=== PATIENT | female | born 1995 | race African-American/Black ===

== ENCOUNTER 2018-01-05 23:07 | Emergency (ER) | payer SELFPAY ==
[~2018-01-05] VITALS: Ht 172.7 cm; Wt 108.9 kg
[2018-01-05] MEDS ORDERED: NKM (23:40)
[2018-01-06 00:57] LABS: APPEARANCE,URINE CLEAR; BILIRUBIN, URINE NEGATIVE (NEGATIVE); GLUCOSE, URINE (UA) NEGATIVE (NEGATIVE); KETONES,URINE 2+ (NEGATIVE); LEUKOCYTE ESTERASE ,URINE 1+ (NEGATIVE); NITRITE,URINE NEGATIVE (NEGATIVE); PH,URINE 6 (4.5-8.0); PROTEIN,URINE NEGATIVE (NEGATIVE); UROBILINOGEN,URINE 12 MG/DL (0.0-1.0)
[2018-01-06 01:07] LABS: COLOR,URINE YELLOW
[2018-01-06 01:48] VITALS: BP 105/72
--- NOTE | 2018-01-06 01:48 | Emergency Room Report ---
History of Present Illness General Chief Complaint: Skin Rash/Abscess Source: Patient Present Illness HPI Patient with itchy rash which has worsened over the last 3 days. Never with allergies before. No new soaps, clothes, foods etc. No fevers. Rash more central and on thighs and chest. Was in heat last few days when started. No meds. Not believe she is , but periods are irregular and she wants to have a test. No pain, but itching. She has taken Benadryl with some help, but itching is still significant. No fevers, URI, CP, NVD, dyspena, throat swelling. Tetanus UTD. Allergies: Coded Allergies: No Known Allergies (Unverified , 01/05/18) Patient History Past Medical History: see triage record Social History: Reports: smoking Social History Narrative with sig other, working Last Menstrual Period: November Reviewed Nursing Documentation: PMH: Agreed; PSxH: Agreed Nursing Documentation-PMH Past Medical History: No Stated History Review of Systems All Other Systems: negative except mentioned in HPI Physical Exam Vital Signs Date Time Temp Pulse Resp B/P (MAP) Pulse Ox O2 Delivery O2 Flow Rate FiO2 01/05/18 23:34 98.7 104 16 103/65 98 Room Air 98.8 Sp02 EP Interpretation: reviewed, normal General Appearance: well appearing, no apparent distress Head: normocephalic, atraumatic Eyes: bilateral eye normal inspection, bilateral eye PERRL ENT: hearing grossly normal, normal pharynx, no angioedema, normal voice, moist mucus membranes Neck: full range of motion, supple Respiratory: lungs clear, normal breath sounds, no respiratory distress, speaking full sentences Cardiovascular #1: regular rate, rhythm Gastrointestinal: normal inspection Musculoskeletal: back normal, digits/nails normal, gait/station normal, normal range of motion, no calf tenderness Neurologic: alert, oriented x3, normal gait, grossly normal Psychiatric: mood/affect normal Skin: other - centripital maculopapular rash, inner thighs, arms, chest and back, no weeping, no sig erythema Medical Decision Making Diagnostic Impression: Primary Impression: Allergic reaction Qualified Codes: T78.40XA - Allergy, unspecified, initial encounter Additional Impression: Heat rash ER Course Patient with itchy rash X few days. DDx: allergy, contact dermatitis, heat rash amongst others. Not appear like hives. No contact exposure history or change in diet/exposures. Will check UA. UA clear and neg preg. Treatment with prednisone, benadryl and topical creams. Patient stable for outpatient observation and treatment. Last Vital Signs Date Time Temp Pulse Resp B/P (MAP) Pulse Ox O2 Delivery O2 Flow Rate FiO2 01/06/18 02:00 97.8 62 16 105/72 99 Room Air 97.8 Status: improved Disposition: HOME, SELF-CARE Condition: Improved Scripts Triamcinolone Acetonide (TRIAMCINOLONE ACETONIDE) 15 Gm Cream..g. 15 GM TP BID, #20 GM 1 Refill 0.1% Prov: Curtis Alvarez M.D. 01/06/18 Diphenhydramine Hcl* (BENADRYL*) 25 Mg Capsule 25 MG ORAL Q6H PRN for Itching, #20 CAP Prov: Curtis Alvarez M.D. 01/06/18 Prednisone* (PREDNISONE*) 20 Mg Tablet 40 MG ORAL DAILY, #10 TAB Prov: Curtis Alvarez M.D. 01/06/18 Referrals: NOT CHOSEN KIP/,REFERRING (PCP) Curtis Alvarez M.D. Jan 06, 2018 01:48
[2018-01-06] MEDS ORDERED: PREDNISONE20 MG ORAL (01:50)
[2018-01-06] MEDS ORDERED: BENADRYL25 MG ORAL (01:50)
[2018-01-06] MEDS ORDERED: TRIAMCINOLONE A15 G1 TP (01:58)
[2018-01-06 02:00] VITALS: BP 105/72
== END 2018-01-06 02:00 | disposition home or self-care (01) ==
LOC: EMR 23:56
DX: T78.40XA Allergy, unspecified, initial encounter (principal); X58.XXXA Exposure to other specified factors, initial encounter; R21 Rash and other nonspecific skin eruption
CPT/HCPCS: 81003; 81025; 99282; J7512